=== PATIENT | female | born 2000 | race Caucasian/White ===

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

== ENCOUNTER → 2018-04-21 | Outpatient (CLI) | payer MEDICAID ==
--- NOTE | 2018-04-21 13:02 | WOMENS IMAGING REPORT ---
EXAM DESCRIPTION: U/S BREAST UNILAT LIMITED COMPLETED DATE/TIME: 04/21/2018 11:24 am REASON FOR STUDY: N63.20 UNSPECIFIED LUMP IN THE LEFT BREAST, UNSPECIFIED QUADRANT N63.20 UNSPECIFI ED LUMP IN THE LEFT BREAST, UNSPECIFIED QUAD COMPARISON: Left breast ultrasound 08/19/2017 TECHNIQUE: Real-time and static grayscale imaging performed of the left breast targeted to the area of clinical concern. Selected color Doppler images recorded. LIMITATIONS: None. FINDINGS: MASS: Well-circumscribed hypoechoic solid nodule with good acoustic through transmission, classic appearance for fibroadenoma left breast 12 o'clock position. This measures about 2.5 x 1.8 c m in size, similar compared to ultrasound exam from 08/19/2017. OTHER: No other significant finding. IMPRESSION: Stable left breast fibroadenoma 12 o'clock position BIRAD: 2 Benign findings. RECOMMENDATION: RECOMMENDED FOLLOW-UP: Follow-up as clinically indicated. COMMENT: The [employer] (ACR) has developed recommendations for screening MRI of the breasts in certain patient populations, to be used in conjunction with mammography. Breast MRI s urveillance may be appropriate for women with more than 20% lifetime risk of developing breast cancer as determined by genetic testing, significant family history of the disease, or history of mantle r adiation for Hodgkins Disease. ACR Practice Guidelines 2008. TECHNICAL DOCUMENTATION: JOB ID: [id number] [employer]- All Rights Reserved Reading location - IP/workstation name: [email or web address]
== END ==
LOC: WI 10:39
PROVIDERS: ATTEND Nurse Practitioner Family
DX: D24.2 Benign neoplasm of left breast (principal)
CPT/HCPCS: 76642

== ENCOUNTER 2019-11-15 18:27 | Inpatient (IN) | payer MEDICAID ==
[2019-11-15] MEDS ORDERED: DINOPROSTONE 10 MG VAGINAL INSERT.SR PV PRN ×2 (18:58→20:10)
[2019-11-15] MEDS ORDERED: OXYTOCIN/0.9 % SODIUM CHLORIDE 30 UNIT/500 ML RTUINJ IV PRN (18:58)
[2019-11-15 19:13] LABS: APPEARANCE,URINE SLIGHTLY-CLOUDY; BILIRUBIN,URINE NEGATIVE (NEGATIVE); COLOR,URINE YELLOW; GLUCOSE, URINE NEGATIVE (NEGATIVE); KETONES,URINE NEGATIVE (NEGATIVE); LEUKOCYTE ESTERASE,URINE MODERATE (NEGATIVE); NITRITE,URINE NEGATIVE (NEGATIVE); PROTEIN,URINE NEGATIVE (NEGATIVE); URINE SPECIFIC GRAVITY 1.016; UROBILINOGEN,URINE NEGATIVE mg/dL (<2.0)
[2019-11-15 19:22] LABS: ABSOLUTE EOSINOPHILS # (AUTO) 0.2 10^3/uL (0.0-0.6); ABSOLUTE LYMPHOCYTES (AUTO) 1.7 10^3/uL (0.5-4.7); ABSOLUTE MONOCYTES (AUTO) 0.7 10^3/uL (0.1-1.4); ABSOLUTE NEUT (AUTO) 6.8 10^3/uL (1.7-8.2); BASOPHILS % (AUTO) 0.4 % (0-2); EOSINOPHILS % (AUTO) 1.7 % (0-6); HEMATOCRIT 30.6 % (36.0-47.0); LYMPHOCYTES % (AUTO) 17.8 % (13-45); MEAN CORPUSCULAR HEMOGLOBIN 33.1 pg (27.0-33.4); MEAN CORPUSCULAR HGB CONC 35.9 g/dL (32.0-36.0); MEAN CORPUSCULAR VOLUME 92 fl (80-97); MONOCYTES % (AUTO) 7.4 % (3-13); PLATELET COUNT 216 10^3/uL (150-450); RED BLOOD COUNT 3.32 10^6/uL (3.72-5.28); RED CELL DISTRIBUTION WIDTH 13.5 % (11.5-14.0); SEGMENTED NEUTROPHILS % (AUTO) 72.7 % (42-78); TOTAL CELLS COUNTED % (AUTO) 100 %; WHITE BLOOD COUNT 9.3 10^3/uL (4.0-10.5)
[2019-11-15] MEDS: RINGERS SOLUTION,LACTATED 1,000 ML IV PRN (19:30)
[2019-11-15 19:31] LABS: URINE AMPHETAMINES SCREEN NEGATIVE; URINE BARBITURATES SCREEN NEGATIVE; URINE BENZODIAZEPINES SCREEN NEGATIVE; URINE COCAINE SCREEN NEGATIVE; URINE MARIJUANA (THC) SCREEN NEGATIVE; URINE METHADONE SCREEN NEGATIVE; URINE PHENCYCLIDINE SCREEN NEGATIVE
[2019-11-15] MEDS ORDERED: MISOPROSTOL 0.2 MG TABLET ONE (19:45)
[2019-11-15] MEDS ORDERED: LIDOCAINE 1% INJ-PF (10 MG/ML) 30 ML SDV ONE (19:45)
[2019-11-15] MEDS ORDERED: OXYTOCIN/0.9 % SODIUM CHLORIDE 30 UNIT/500 ML RTUINJ ONE (19:45)
[2019-11-15] MEDS ORDERED: OXYTOCIN 10 UNIT/ML VIAL ONE (19:45)
[2019-11-15] MEDS ORDERED: DINOPROSTONE 10 MG VAGINAL INSERT.SR ONE (19:45)
[2019-11-15] MEDS ORDERED: ZOLPIDEM TARTRATE 5 MG TABLET ONE (22:57)
[2019-11-16] MEDS ORDERED: ZOLPIDEM TARTRATE 5 MG TABLET PO ONE (00:15)
[2019-11-16] MEDS: RINGERS SOLUTION,LACTATED 1,000 ML IV PRN ×2 (04:49→14:31)
--- NOTE | 2019-11-16 10:19 | L&D Progress Notes ---
PROGRESS NOTES Datetime Report Generated by CPN: 11/16/2019 10:19 PROGRESS NOTE Vital Signs : Reviewed Comment: Cat 1 strips, uc's q 2-4, Pitocin, Dr. Sauceda plans on Cooks catheter LAST VAGINAL EXAM-NURSING Nursing Exam Dilitation: 1.5 Nursing Exam Effacement: 50 Nursing Exam Station: ballotable Nursing Exam Contractions: Irritability FETUS A Monitoring: External US SIGNATURE SIGNATURE: [id number] Assignment: Jayda Sauceda MD Signature: with User ID: [email or web address] : with User ID: Kady
--- NOTE | 2019-11-16 11:51 | L&D Progress Notes ---
PROGRESS NOTES Datetime Report Generated by CPN: 11/16/2019 11:51 PROGRESS NOTE Vital Signs : Reviewed Comment: late decels, mod variabillity, Pitocin stopped, position change LAST VAGINAL EXAM-NURSING Nursing Exam Dilitation: 1.5 Nursing Exam Effacement: 50 Nursing Exam Station: ballotable Nursing Exam Contractions: Irritability FETUS A Monitoring: External US SIGNATURE SIGNATURE: [id number] Assignment: Jayda Sauceda MD Signature: with User ID: Kady : with User ID: Kady
[2019-11-16] MEDS ORDERED: EPHEDRINE SULFATE INJ 50 MG/1 ML AMPULE ONE (14:53)
[2019-11-16] MEDS ORDERED: FENTANYL/BUPIVACAINE/NS/PF 300 MCG/150 ML RTUINJ EPI ONE (14:53)
[2019-11-16] MEDS ORDERED: ROPIVACAINE HCL 0.2% INJ/PF (2 MG/ML) 20 ML SDV ONE (14:53)
[2019-11-16] MEDS ORDERED: DIPH/PERTUSS(ACELL)/TETANUS VAC/PF 0.5 ML SYR (>=10YO) IM PRN (22:48)
[2019-11-16] MEDS ORDERED: PROMETHAZINE HCL 25 MG SUPP.RECT PR PRN (22:48)
[2019-11-16] MEDS ORDERED: PROMETHAZINE HCL INJ 25 MG/1 ML VIAL IV PRN (22:48)
[2019-11-16] MEDS ORDERED: DIBUCAINE 1% OINTMENT 28 GM TP PRN (22:48)
[2019-11-16] MEDS ORDERED: MEASLES,MUMPS&RUBELLA VACC/PF 0.5 ML VIAL SUBCUT PRN (22:48)
[2019-11-16] MEDS ORDERED: PROMETHAZINE HCL 25 MG TABLET PO PRN (22:48)
[2019-11-16] MEDS ORDERED: ACETAMINOPHEN 325 MG TABLET PO PRN (22:48)
[2019-11-16] MEDS ORDERED: PSEUDOEPHEDRINE HCL 30 MG TABLET PO PRN (22:48)
[2019-11-16] MEDS ORDERED: ACETAMINOPHEN WITH CODEINE #3 TABLET PO PRN ×2 (22:48)
[2019-11-16] MEDS ORDERED: ZOLPIDEM TARTRATE 5 MG TABLET PO PRN (22:48)
[2019-11-16] MEDS ORDERED: MAGNESIUM HYDROXIDE SUSP 30 ML UDCUP PO PRN (22:48)
[2019-11-16] MEDS ORDERED: OXYTOCIN/0.9 % SODIUM CHLORIDE 30 UNIT/500 ML RTUINJ IV PRN (22:48)
[2019-11-16] MEDS ORDERED: GLYCERIN/WITCH HAZEL LEAF 1 EACH MED..WIPE TP PRN (22:48)
[2019-11-16] MEDS ORDERED: DIPHENHYDRAMINE HCL 25 MG CAPSULE PO PRN (22:48)
[2019-11-16] MEDS ORDERED: NA PHOS,M-B/NA PHOS,DI-BA (ADULT) 133 ML ENEMA PR PRN (22:48)
[2019-11-16] MEDS ORDERED: BENZOCAINE/MENTHOL AEROSOL SPRAY 56 ML TOP PRN (22:48)
[2019-11-16] MEDS ORDERED: IBUPROFEN 800 MG TABLET ONE (22:56)
[2019-11-17] MEDS ORDERED: PIPERACILLIN/TAZOBACTAM 3.375 GM VIAL IV SCH
[2019-11-17] MEDS ORDERED: PIPERACILLIN/TAZOBACTAM 3.375 GM VIAL IV ONE (00:43)
[2019-11-17] MEDS: PIPERACILLIN/TAZOBACTAM 3.375 GM VIAL IV SCH ×3 (01:04→06:54)
--- NOTE | 2019-11-17 02:05 | Delivery Summary ---
Del Sum A-C Datetime Report Generated by CPN: 11/17/2019 02:05 DELIVERY PERSONNEL DELIVERY PERSONNEL: [id number] Delivery Doctor:: Jayda Sauceda MD CLOUD AUTOMATION TESTER:: Fabricio Werner CRNA Labor and Delivery Nurse:: Amie Collazo RNmetal expediter Nurse:: Michaela Govea RN Nursery Nurse:: Greer Jefferson RN MATERNAL INFORMATION Delivery Anesthesia: Epidural Medications After Delivery: Pitocin 30 Units in 500ml NS/D5W Estimated Blood Loss (ml): 50 Delivery QBL: 50 Maternal Complications: Other Complication Details: IUGR Provider Comments: VMI delivered in direct OA presentation with doubly footling cord. SHoulders and body delivered without difficulty. Cord doubly clamped and cut and to maternal abdomen for NRP. Placenta delivered intact spontaneoulsy. superficial perineal laceration repaired with good hemostasis. Mother and baby stable upon provider leaving the room. LABOR SUMMARY EDC: 11/16/2019 00:00 No. Babies in Womb: 1 Attempted: No Labor Anesthesia: Epidural LABOR INFORMATION Reason for Induction: Intrauterine Growth Retardation Onset of Labor: 11/16/2019 13:53 Complete Dilatation: 11/16/2019 21:38 Cervical Ripening Agents: Cervidil; Molina Balloon Oxytocin: Induction Group B Beta Strep: negative Antibiotics # of Doses: 0 Steroids Given: None Reason Steroids Not Administered: Not Applicable MEMBRANES Membranes Rupture Method: Spontaneous Rupture of Membranes: 11/16/2019 15:42 Length of Rupture (hr): 6.82 Amniotic Fluid Color: Clear Amniotic Fluid Amount: Moderate Amniotic Fluid Odor: Normal STAGES OF LABOR Stage 1 hr: 7 Stage 1 min: 45 Stage 2 hr: 0 Stage 2 min: 53 Stage 3 hr: 0 Stage 3 min: 4 Total Time in Labor hr: 8 Total Time in Labor min: 42 VAGINAL DELIVERY Episiotomy: None Laceration #1: Perineal Laceration Extension #1: N/A Laceration Repair: Yes Laceration Repair Note: superficial perineal laceration repaired Sponge Count Correct: Yes Sharps Count Correct: Yes CSECTION DELIVERY Primary Indication: N/A Secondary Indication: N/A CSection Incidence: N/A Labor: N/A Elective: N/A CSection Incision: N/A BABY A INFORMATION Delivery Date/Time: 11/16/2019 22:31 Method of Delivery: Vaginal Nurse Controlled Delivery: No Born in Route : No : N/A Forceps: N/A Vacuum Extraction: N/A Shoulder Dystocia : No PRESENTATION/POSITION BABY A Presentation: Cephalic Cephalic Presentation: Vertex Vertex Position: OA Breech Presentation: N/A PLACENTA INFORMATION BABY A Placenta Delivery Time : 11/16/2019 22:35 Placenta Method of Delivery: Spontaneous Placenta Status: Delivered SCORES BABY A Heart Rate 1 min: >100 bpm Resp Effort 1 min: Good Cry Reflex Irritability 1 min: Cough or Sneeze or Pulls Away Muscle Tone 1 min: Active Motion Color 1 min: Body [place], Extremities Blue Resuscitation Effort 1 min: Tactile Stimulation SCORE 1 MIN: 9 Heart Rate 5 min: >100 bpm Resp Effort 5 min: Good Cry Reflex Irritability 5 min: Cough or Sneeze or Pulls Away Muscle Tone 5 min: Active Motion Color 5 min: Body [place], Extremities Blue SCORE 5 MIN: 9 INFANT INFORMATION BABY A Gestational Age at Delivery: 40.0 Gestational Status: Full Term- 39- 40.6 Weeks Outcome : Liveborn Condition : Stable Infant Sex: Male IDENTIFICATION BABY A Verification Date/Time: 11/16/2019 23:05 ID Band Number: [id number] Mother's Name Verified: Yes RN Verifying Infant: Gemma CollazoDASIA Additional Verifying Personnel: Sri Caballero, MANAGER THERAPY WEIGHT/LENGTH BABY A Birthweight (gm): 3218 Weight (lb): 7 Infant Weight (oz): 2 Infant Length (in): 19.50 Length (cm): 49.53 CORD INFORMATION BABY A No. Cord Vessels: 3 Nuchal Cord : double nuchal on foot Cord Blood Taken: Yes-For Eval (Mom's Blood Type - or O+) Infant Suction: None ASSESSMENT BABY A Skin to Skin: Yes BABY B INFORMATION : N/A SIGNATURES Assignment: Patrick Jefferson, MD Signature: with User ID: Leia : with User ID: Leia : I was personally available for consultation and serving as supervising physician for the MLP.
--- NOTE | 2019-11-17 02:05 | Birth Certificate Data ---
Cert Data Datetime Report Generated by CPN: 11/17/2019 02:05 CERTIFICATE DATA 47a. Care: Yes (11/15/2019 16:31:Latanya Eaton RN) 47b. Date of First Visit: 04/03/2019 00:00 (11/15/2019 16:31:Latanya Eaton RN) 47c. Date of Last Visit: 11/15/2019 00:00 (11/15/2019 16:31:Latanya Eaton RN) 47d. Number of Visits: 13 (11/15/2019 16:31:Latanya Eaton RN) 48a. Number of Prev Live Births: 0 (11/15/2019 16:31:Latanya Eaton RN) 48b. Now Livin (11/15/2019 16:31:Latanya Eaton RN) 48c. Live Births Now : 0 (11/15/2019 16:31:QS system process) 48e. Losses: 0 (11/15/2019 16:31:Latanya Eaton RN) RISK FACTORS IN THIS 49a. Diabetes: No (11/15/2019 16:31:Breann Carroll RN) 49b. Hypertension: No (11/15/2019 16:31:Breann Carroll RN) 49c. Previous Births: 0 (11/15/2019 16:31:Latanya Eaton RN) 49d. Stillborns: No (11/15/2019 16:31:Breann Carroll RN) 49d. IUGR: Yes (11/15/2019 16:31:Breann Carroll RN) 49e. Infertility Treatment: No (11/15/2019 16:31:Breann Carroll RN) 49f. Previous Cesareans: 0 (11/15/2019 16:31:Latanya Eaton RN) Mother's Height 50b. Height Inches: 61 (11/17/2019 01:31:QS system process) Mother's Weight 51a. Pre- Weight (lbs): 112 (11/15/2019 16:31:Latanya Eaton RN) 51b. Weight at Delivery (lbs): 158 (11/17/2019 01:31:QS system process) 52. Dt Last Normal Menses Began: 02/09/2019 00:00 (11/15/2019 16:31:Latanya Eaton RN) Infections Present/Treated 53a. Gonorrhea: No (11/15/2019 16:31:Breann Carroll RN) Results this Hospital Visit : Negative (11/15/2019 16:31:Latanya Eaton RN) 53b. Syphilis: No (11/15/2019 16:31:Breann Carroll RN) Results this Hospital Visit: NONREACTIVE (11/15/2019 19:10:QS system process) 53c. Chlamydia: No (11/15/2019 16:31:Breann Carroll RN) Results this Hospital Visit: Negative (11/15/2019 16:31:Latanya Eaton RN) 53d. Hepatitis B: No (11/15/2019 16:31:Breann Carroll RN) Results this Hospital Visit: Negative (11/15/2019 16:31:Latanya Eaton RN) 53e. Hepatitis C: Negative (11/15/2019 16:31:Latanya Eaton RN) 53h. Mother Tested for HBsAG: Yes (11/15/2019 16:31:Latanya Eaton RN) 53i. Date Tested: 04/24/2019 00:00 (11/15/2019 16:31:Latanya Eaton RN) 53j. Test Result: Negative (11/15/2019 16:31:Latanya Eaton RN) Obstetric Procedures 54a, b, c. Obstetric Procedures: Ultrasound; NST (11/15/2019 16:31:Breann Carroll RN) Cigarette Smoking Cigarette Smoking: Never Smoker. [id number] (11/15/2019 16:31:Breann Carroll RN) 55a. 3 Months Before Preg - Ci (11/15/2019 16:31:Breann Carroll RN) 55b. 1st Trimester of Preg- Ci (11/15/2019 16:31:Breann Carroll RN) 55c. 2nd Trimester of Preg- Ci (11/15/2019 16:31:Breann Carroll RN) 55d. 3rd Trimester of Preg- Ci (11/15/2019 16:31:Breann Carroll RN) Onset of Labor 56a. PROM >12 Hrs: 6.82 (11/16/2019 15:42:QS system process) 56b. Precipitous Labor <3 Hrs: 8 (11/15/2019 16:31:QS system process) 56c. Prolonged Labor > 20 Hrs: 8 (11/15/2019 16:31:QS system process) 57a. Induction of Labor: Induction (11/15/2019 16:31:Michaela Govea RN) 57a. Induction of Labor: Cervidil; Molina Balloon (11/15/2019 20:10:Michaela Govea RN) 57c. Non-Vertex Presentation A: Vertex (11/15/2019 16:31:Michaela Govea RN) 57d. Steroids - Lung Mat: None (11/15/2019 16:31:Michaela Govea RN) 57d. Steroids - Lung Mat: Not Applicable (11/15/2019 16:31:Michaela Govea RN) 57g. Moderate/Heavy Meconium: Clear (11/16/2019 15:42:Annalee Cm RN) 57h. Intolerance of Labor: N/A (11/15/2019 16:31:Michaela Govea RN) : N/A (11/15/2019 16:31:Michaela Govea RN) 57i. Epidural/Spinal Anesthesia: Epidural (11/15/2019 16:31:Michaela Govea RN) Method of Delivery 58a. Forceps - Unsuccessful A: N/A (11/15/2019 16:31:Michaela Govea RN) 58b. Vacuum - Unsuccessful A: N/A (11/15/2019 16:31:Michaela Govea RN) 58c. Presentation at 58c. Presentation at - A : Vertex (11/15/2019 16:31:Michaela Govea RN) 58c. Presentation at - A : N/A (11/15/2019 16:31:Michaela Govea RN) 58c. Presentation at - A : Cephalic (11/16/2019 09:02:Annalee Cm RN) Final Route and Method of Del 58d. Baby A Route/Delivery: Vaginal (11/16/2019 22:31:Amie Collazo RN) 58e. Trial of Labor Attempted: No (11/15/2019 16:31:Michaela Govea RN) 58e. Trial of Labor Attempted A: N/A (11/15/2019 16:31:Michaela Govea RN) 58e. Trial of Labor Attempted B: N/A (11/15/2019 16:31:Micahela Govea RN) Maternal Morbidity 59b. 3rd or 4th Degree Lacs: Perineal (11/15/2019 16:31:Jayda Sauceda MD ([facility])) Birthweight Baby A: 3218 (11/15/2019 16:31:Amie Collazo RN) 60a. Pounds : 7 (11/15/2019 16:31:QS system process) 60b. Ounces: 2 (11/15/2019 16:31:QS system process) 61. GA at Delivery Baby A: 40.0 (11/15/2019 16:31:Michaela Govea RN) : Full Term- 39- 40.6 Weeks (11/15/2019 16:31:QS system process) 62a. 5 Minute Baby A: 9 (11/15/2019 16:31:QS system process)
[2019-11-17] MEDS: FAMOTIDINE 20 MG TABLET PO SCH ×3 (02:27→21:23)
[2019-11-17] MEDS: ZOLPIDEM TARTRATE 5 MG TABLET PO SCH ×2 (02:27→21:23)
[2019-11-17] MEDS: IBUPROFEN 800 MG TABLET PO SCH ×3 (06:53→21:23)
[2019-11-17 07:13] LABS: HEMATOCRIT 27.1 % (36.0-47.0); HEMOGLOBIN 9.8 g/dL (12.0-15.5); MEAN CORPUSCULAR HEMOGLOBIN 33.2 pg (27.0-33.4); MEAN CORPUSCULAR HGB CONC 36.1 g/dL (32.0-36.0); MEAN CORPUSCULAR VOLUME 92 fl (80-97); PLATELET COUNT 178 10^3/uL (150-450); RED BLOOD COUNT 2.95 10^6/uL (3.72-5.28); RED CELL DISTRIBUTION WIDTH 13.6 % (11.5-14.0)
[2019-11-17] MEDS: FERROUS SULFATE 325 MG TABLET PO SCH ×2 (10:15→17:17)
[2019-11-17] MEDS: PRENATAL VITAMIN W DHA CAPSULE PO SCH (10:15)
[2019-11-17] MEDS: SENNOSIDES/DOCUSATE 8.6-50 MG 1 EACH TABLET PO SCH (10:15)
[2019-11-17] MEDS: DOCUSATE SODIUM 100 MG CAPSULE PO SCH ×2 (10:15→17:17)
--- NOTE | 2019-11-17 10:33 | PDOC PROGRESS REPORT ---
Subjective-OB Progress Note for:: 11/17/19 Subjective: Doing well, no c/o, holding baby, mild depression but doing ok today, scant bleeding Physical Exam (OB) Vital Signs: Temp Pulse Resp BP Pulse Ox 98.0 F 87 18 123/74 100 11/17/19 07:35 11/17/19 07:35 11/17/19 07:35 11/17/19 07:35 11/17/19 07:35 Intake & Output 11/16/19 11/17/19 11/18/19 06:59 06:59 06:59 Intake Total 1000 1000 1000 Output Total 250 Balance 3736 293 0084 Weight 72.1 kg - PIH/Pre-Eclampsia Clonus: Negative Headache: Absent Epigastric Pain: No Visual Changes: No - Maternal Morbidity 59. Maternal Morbidity (serious complications experinced by the mother associated with labor and delivery: None of the above - Lochia Lochia Amount: Scant < 10 ml Lochia Color: Rubra/Red - Abdomen Description: Soft, Round Hernia Present: No Fundal Description: Firm, Midline Fundal Height: u/u - u/2 Objective-Diagnostic Laboratory: 11/17/19 06:53 11/17/19 11/17/19 00:40 06:53 WBC 13.0 H RBC 2.95 L Hgb 9.8 L Hct 27.1 L MCV 92 MCH 33.2 MCHC 36.1 H RDW 13.6 Plt Count 178 Blood Type A POSITIVE Assessment and Plan(PN) - Assessment and Plan (1) Vaginal delivery Is this a current diagnosis for this admission?: Yes (2) Encounter for induction of labor Is this a current diagnosis for this admission?: Yes (3) Intrauterine growth restriction (IUGR) affecting care of mother Qualifiers: Fetus number: single or unspecified fetus Trimester: third trimester Qual ified Code(s): O36.5930 - Maternal care for other known or suspected poor growth, third trimester, not applicable or unspecified Is this a current diagnosis for this admission?: Yes - Time Spent with Patient Time with patient: Less than 15 minutes Medications reviewed and adjusted accordingly: Yes - Disposition Anticipated Discharge Disposition: Home, Self Care Anticipated Discharge Timeframe: within 24 hours
[2019-11-17] MEDS ORDERED: PIPERACILLIN SODIUM/TAZOBACTAM 3.375 GM in NORMAL SALINE 100 ML IV SCH (12:00)
[2019-11-18] MEDS: IBUPROFEN 800 MG TABLET PO SCH ×2 (05:23→16:19)
[2019-11-18 07:45] VITALS: BP 125/77
[2019-11-18] MEDS: FERROUS SULFATE 325 MG TABLET PO SCH (10:16)
[2019-11-18] MEDS: FAMOTIDINE 20 MG TABLET PO SCH (10:16)
[2019-11-18] MEDS: SENNOSIDES/DOCUSATE 8.6-50 MG 1 EACH TABLET PO SCH (10:16)
[2019-11-18] MEDS: DOCUSATE SODIUM 100 MG CAPSULE PO SCH (10:16)
[2019-11-18] MEDS: PRENATAL VITAMIN W DHA CAPSULE PO SCH (10:16)
--- NOTE | 2019-11-18 11:11 | PDOC PROGRESS REPORT ---
Subjective-OB Progress Note for:: 11/18/19 Subjective: Doing well, doing good, ready to go home, breast feeding, fob at BS Physical Exam (OB) Vital Signs: Temp Pulse Resp BP Pulse Ox 97.6 F 70 18 125/77 100 11/18/19 08:53 11/18/19 07:19 11/18/19 07:19 11/18/19 07:19 11/18/19 07:19 Intake & Output 11/17/19 11/18/19 11/19/19 06:59 06:59 06:59 Intake Total 1000 1000 Output Total 252 Balance 748 1000 - PIH/Pre-Eclampsia DTR's: 2 + Clonus: Negative Headache: Absent Epigastric Pain: No Visual Changes: No - Maternal Morbidity 59. Maternal Morbidity (serious complications experinced by the mother associated with labor and delivery: None of the above - Lochia Lochia Amount: Scant < 10 ml Lochia Color: Rubra/Red - Abdomen Description: Tender, Soft Hernia Present: No Fundal Description: Firm, Midline Fundal Height: u/u - u/2 Objective-Diagnostic Laboratory: 11/17/19 06:53 Assessment and Plan(PN) - Assessment and Plan (1) Vaginal delivery Is this a current diagnosis for this admission?: Yes (2) Encounter for induction of labor Is this a current diagnosis for this admission?: Yes (3) Intrauterine growth restriction (IUGR) affecting care of mother Qualifiers: Fetus number: single or unspecified fetus Trimester: third trimester Qualified Code(s): O36.5930 - Maternal care for other known or suspected poor growth, third trimester, not applicable or unspecified Is this a current diagnosis for this admission?: Yes - Time Spent with Patient Time with patient: Less than 15 minutes Medications reviewed and adjusted accordingly: Yes - Disposition Anticipated Discharge Disposition: Home, Self Care Anticipated Discharge Timeframe: within 24 hours
--- NOTE | 2019-11-18 11:16 | PDOC DISCHARGE SUMMARY ---
Impression - Admit/DC Date/PCP Admission Date/Primary Care Provider: 11/15/19 18:27 ISAIAS BABIN MD Discharge Date: 11/18/19 - Discharge Diagnosis (1) Vaginal delivery Is this a current diagnosis for this admission?: Yes (2) Encounter for induction of labor Is this a current diagnosis for this admission?: Yes (3) Intrauterine growth restriction (IUGR) affecting care of mother Is this a current diagnosis for this admission?: Yes - Additional Information Resuscitation Status: Full Code Discharge Diet: As Tolerated, Regular Discharge Activity: Activity As Tolerated, Pelvic Rest Referrals: ISAIAS BABIN MD [Primary Care Provider] - (4 weeks [facility]) Home Medications: Pedi Mv No.79/Ferrous Fumarate [Flintstones with Iron Tab Chew] 18 mg PO DAILY 11/15/19 HPI Gestational Age: 40.1 Reason(s) for Admission: Induction of Labor Admission Note: IUGR Procedures: NST, Ultrasound Intrapartum Procedure(s): Spontaneous Vaginal Delivery Complication(s): Laceration-Periurethral Laceration-Degree: 1st - superficial lac Hospital Course Hospital Course: routine 59. Maternal Morbidity (serious complications experinced by the mother associated with labor and delivery: None of the above Results Laboratory Results: WBC 13.0 10^3/uL (4.0-10.5) H 11/17/19 06:53 RBC 2.95 10^6/uL (3.72-5.28) L 11/17/19 06:53 Hgb 9.8 g/dL (12.0-15.5) L 11/17/19 06:53 Hct 27.1 % (36.0-47.0) L 11/17/19 06:53 MCV 92 fl (80-97) 11/17/19 06:53 MCH 33.2 pg (27.0-33.4) 11/17/19 06:53 MCHC 36.1 g/dL (32.0-36.0) H 11/17/19 06:53 RDW 13.6 % (11.5-14.0) 11/17/19 06:53 Plt Count 178 10^3/uL (150-450) 11/17/19 06:53 Lymph % (Auto) 17.8 % (13-45) 11/15/19 19:10 [place] % (Auto) 7.4 % (3-13) 11/15/19 19:10 Eos % (Auto) 1.7 % (0-6) 11/15/19 19:10 Baso % (Auto) 0.4 % (0-2) 11/15/19 19:10 Absolute Neuts (auto) 6.8 10^3/uL (1.7-8.2) 11/15/19 19:10 Absolute Lymphs (auto) 1.7 10^3/uL (0.5-4.7) 11/15/19 19:10 Absolute Monos (auto) 0.7 10^3/uL (0.1-1.4) 11/15/19 19:10 Absolute Eos (auto) 0.2 10^3/uL (0.0-0.6) 11/15/19 19:10 Absolute Basos (auto) 0.0 10^3/uL (0.0-0.2) 11/15/19 19:10 Seg Neutrophils % 72.7 % (42-78) 11/15/19 19:10 Urine Color YELLOW 11/15/19 18:40 Urine Appearance SLIGHTLY-CLOUDY 11/15/19 18:40 Urine pH 7.0 (5.0-9.0) 11/15/19 18:40 Ur Specific [place] 1.016 11/15/19 18:40 Urine Protein NEGATIVE mg/dL (NEGATIVE) 11/15/19 18:40 Urine Glucose (UA) NEGATIVE mg/dL (NEGATIVE) 11/15/19 18:40 Urine Ketones NEGATIVE mg/dL (NEGATIVE) 11/15/19 18:40 Urine Blood NEGATIVE (NEGATIVE) 11/15/19 18:40 Urine Nitrite NEGATIVE (NEGATIVE) 11/15/19 18:40 Urine Bilirubin NEGATIVE (NEGATIVE) 11/15/19 18:40 Urine Urobilinogen NEGATIVE mg/dL (<2.0) 11/15/19 18:40 Ur Leukocyte Esterase MODERATE (NEGATIVE) H 11/15/19 18:40 Urine WBC (Auto) 6 /HPF 11/15/19 18:40 Squamous Epi Cells Auto 12 /HPF 11/15/19 18:40 Urine Mucus (Auto) RARE /LPF 11/15/19 18:40 Urine Ascorbic Acid NEGATIVE (NEGATIVE) 11/15/19 18:40 Urine Opiates Screen NEGATIVE 11/15/19 18:40 Urine Methadone Screen NEGATIVE 11/15/19 18:40 Ur Barbiturates Screen NEGATIVE 11/15/19 18:40 Ur Phencyclidine Scrn NEGATIVE 11/15/19 18:40 Ur Amphetamines Screen NEGATIVE 11/15/19 18:40 U Benzodiazepines Scrn NEGATIVE 11/15/19 18:40 Urine Cocaine Screen NEGATIVE 11/15/19 18:40 U Marijuana (THC) Screen NEGATIVE 11/15/19 18:40 RPR NONREACTIVE (NONREACTIVE) 11/15/19 19:10 Blood Type A POSITIVE 11/17/19 00:40 Antibody Screen NEGATIVE 11/15/19 19:10 Plan Health Concerns: routine Plan of Treatment: rev S&S to report including depression/anxiety Goals: no complications Time Spent: Less than 30 Minutes
--- NOTE | 2019-11-28 10:26 | Admission Physical ---
Datetime Report Generated by CPN: 11/28/2019 10:26 CURRENT ADMISSION Chief Complaint: Uterine Contractions Indication for Induction: Not Applicable Admit Impression : Term, Intrauterine Admit Plan: Admit to Unit ALLERGIES Medication Allergies: No Medication Allergies: No Known Allergies (11/15/2019) Medication Allergies: No Known Allergies (04/21/2018) Latex: No Latex Allergies Food Allergies: None Environmental Allergies: None OBSTETRICAL HISTORY EDC: 11/16/2019 00:00 : 1 Para: 0 Term: 0 : 0 SAB: 0 IAB: 0 Ectopic: 0 Livin Cesareans: 0 VBACs: 0 Multiple Births: 0 Gestational Diabetes: No Rh Sensitization: No Incompetent Cervix: No LANDON: No Infertility: No ART Treatment: No Uterine Anomaly: No IUGR: Yes Hx Previous C/S: No Macrosomia: No Hx Loss/Stillborn: No PIH: No Hx : No Placenta Previa/Abruption: No Depression/PP Depression: No PTL/PROM: No Post Hemorrhage: No Current Procedures: Ultrasound; NST Obstetrical History Comments: G1- Current- IUGR SEE RECORDS Alcohol: No Marijuana : No Cocaine: No Other Illicit Drugs: No Cigarettes: Never Smoker. [id number] MEDICAL HISTORY Diabetes: No Blood Transfusion: No Pulmonary Disease (Asthma, TB): Yes Breast Disease: No Hypertension: No Die Forger Surgery: No Heart Disease: No Hosp/Surgery: No Autoimmune Disorder: No Anesthetic Complications: No Kidney Disease: Yes Abnormal Pap Smear: No Neuro/Epilepsy: No Psychiatric Disorders: Yes Other Medical Diseases: No Hepatitis/Liver Disease: No Significant Family History: No Varicosities/Phlebitis: No Trauma/Violence : No Thyroid Dysfunction: No Medical History Comments: childhood asthma, UTI and kidney stones, Anxiety was taking gabapentin before , mild depression INFECTIOUS HISTORY Gonorrhea: No Genital Herpes: No Chlamydia: No Tuberculosis: No Syphilis: No Hepatitis: No HIV/AIDS Exposure: No Rash or Viral Illness: No HPV: No PHYSICAL EXAM General: Normal HEENT: Normal Neurologic: Normal Thyroid: Normal Heart: Normal Lungs: Normal Breast: Deferred Back: Normal Abdomen: Normal Genitourinary Exam: Normal Extremities: Normal DTRs: Normal Pelvic Type: Adequate PLANS FOR LABOR AND DELIVERY Labor and Delivery: None Pain Management: Epidural Feeding Preference: Breast Benefit of Breast Feed Discussed: Yes Circumcision: Yes INFORMED CONSENT Signature: with User ID: [email or web address]
== END 2019-11-18 17:05 | disposition home or self-care (01) | DRG 807 ==
LOC: LR 18:27 → 2S 11-17 01:31
PROVIDERS: ADMIT Obstetrics & Gynecology Gynecology; ATTEND Obstetrics & Gynecology Gynecology
PROC: 10E0XZZ Delivery of Products of Conception, External Approach (ICD-10-PCS; principal; 2019-11-16)
PROC: 0HQ9XZZ Repair Perineum Skin, External Approach (ICD-10-PCS; 2019-11-16)
DX: O36.5930 Maternal care for other known or suspected poor fetal growth, third trimester, not applicable or unspecified (principal); Z37.0 Single live birth; O69.2XX0 Labor and delivery complicated by other cord entanglement, with compression, not applicable or unspecified; O26.893 Other specified pregnancy related conditions, third trimester; Z67.11 Type A blood, Rh negative; O70.0 First degree perineal laceration during delivery; O99.344 Other mental disorders complicating childbirth; F41.8 Other specified anxiety disorders; Z3A.39 39 weeks gestation of pregnancy
CPT/HCPCS: 1967; 36415; 80307; 81001; 85025; 85027; 86592; 86850; 86900; 86901; 88307; 94760; J2543; J2590; J2795; J3010; J3490; J7050